=== PATIENT | female | born 1975 | race Caucasian/White ===

== ENCOUNTER 2017-07-29 18:29 | Emergency (ER) | payer OTHER ==
[2017-07-29 18:43] VITALS: BMI 23.0
--- NOTE | 2017-07-29 19:09 | PDOC ---
History of Present Illness - General Chief Complaint: Lightheaded Stated Complaint: ABD PAIN - History of Present Illness Initial Comments: Patient is a 41 year old female, with a significant past medical history of NIDDM2, who presents to the emergency department complaining of dizziness, N/V beginning this afternoon. Pt states she was fasting for ada with no food or fluids since last night. 3 hours prior to presentation in ED, pt states she became progressively lightheaded, flushed and dizzy with crampy lower abdominal pain and 10x episodes of NBNB emesis. Pt states she was in her usual state of health last night and denies any recent diet changes, sick contacts, recent travel. Of note, pt states her finger sticks were in the 300s this afternoon, with her normal range 100-150s. Pt has no hx of cardiac, GI or neurologic conditions and is compliant with her Metformin. Patient denies chest pain, shortness of breath, headache.. Denies fever, chills , diarrhea, melena, hematochezia and constipation. Denies dysuria, frequency, urgency and hematuria. Allergies: None Past surgical history: None Social History: Denies all toxic habits PMD: Not on staff 07/29/17 19:09 Past History - Past Medical History Allergies/Adverse Reactions: Allergies Allergy/AdvReac Type Severity Reaction Status Date / Time No Known Allergies Allergy Unverified 05/17/12 17:52 COPD: No Diabetes: Yes - Suicide/Smoking/Psychosocial Hx Smoking History: Never smoked Have you smoked in the past 12 months: No Information on smoking cessation initiated: No Hx Alcohol Use: No Drug/Substance Use Hx: No Review of Systems - Review of Systems Comments:: GENERAL/CONSTITUTIONAL: + flushing. No fever or chills. No weakness. HEAD, EYES, EARS, NOSE AND THROAT: No change in vision. No ear pain or discharge. No sore throat. CARDIOVASCULAR: No chest pain or shortness of breath RESPIRATORY: No cough, wheezing, or hemoptysis. GASTROINTESTINAL:+ N/V, lower abdominal pain; no diarrhea or constipation. GENITOURINARY: No dysuria, frequency, or change in urination. MUSCULOSKELETAL: No joint or muscle swelling or pain. No neck or back pain. SKIN: No rash NEUROLOGIC: + dizziness, lightheadedness; No headache, vertigo, loss of consciousness, or change in strength/sensation. ENDOCRINE: No increased thirst. No abnormal weight change HEMATOLOGIC/LYMPHATIC: No anemia, easy bleeding, or history of blood clots. ALLERGIC/IMMUNOLOGIC: No hives or skin allergy. 07/29/17 19:09 *Physical Exam - Vital Signs Last Vital Signs Temp Pulse Resp BP Pulse Ox 97.3 F L 78 20 156/75 100 07/29/17 18:40 07/29/17 18:40 07/29/17 18:40 07/29/17 18:40 07/29/17 18:40 - Physical Exam Comments: GENERAL: Middle aged woman, Awake, alert, and fully oriented, in no acute distress HEAD: No signs of trauma, normocephalic, atraumatic EYES: PERRLA, EOMI, sclera anicteric, conjunctiva clear ENT: Auricles normal inspection, hearing grossly normal, nares patent, oropharynx clear without exudates. Dry MM NECK: Normal ROM, supple, no lymphadenopathy, JVD, or masses LUNGS: No distress, speaks full sentences, clear to auscultation bilaterally HEART: Regular rate and rhythm, normal S1 and S2, no murmurs, rubs or gallops, peripheral pulses normal and equal bilaterally. ABDOMEN: Soft, nontender, normoactive bowel sounds. No guarding, no rebound. No masses. No CVA tenderness. EXTREMITIES : Normal inspection, Normal range of motion, no edema. No clubbing or cyanosis. NEUROLOGICAL: Cranial nerves II through XII grossly intact. Normal speech, normal gait, no focal sensorimotor deficits SKIN: Warm, Dry, normal turgor, no rashes or lesions noted 07/29/17 19:09 ED Treatment Course - LABORATORY CBC & Chemistry Diagram: 07/29/17 19:37 07/29/17 20:20 Medical Decision Making - Medical Decision Making Patient is a 41 year old female, with a significant past medical history of NIDDM2, who presents to the emergency department complaining of dizziness, N/V beginning this afternoon. DDX includes dehydration, HONK, DKA, viral gastritis, PUD, GERD, UTI, pyelonephritis, gastroenteritis. Plan: -CMP, CBC - UA - BGM - Bolus 1L 07/29/17 19:32 Pt symptoms improved with fluids, zofran. Labs only remarkable for WBC 15, likely reactive. Pt discharged home with counseling on fasting and f/u with PMD. 07/29/17 22:16 *DC/Admit/Observation/Transfer Diagnosis at time of Disposition: Lightheadedness DM type 2 (diabetes mellitus, type 2) Qualifiers: Diabetes mellitus intermediate accountant insulin use: without senior living use Diabetes mellitus complication status: without complication Qualified Code(s): E11.9 - Type 2 diabetes mellitus without complications - Discharge Dispostion Disposition: HOME Condition at time of disposition: Stable - Referrals Referrals: Lilly Nath MD [Primary Care Provider] - - Patient Instructions Printed Discharge Instructions: Type 2 Diabetes, DI for Dizziness-Nonvertigo Additional Instructions: Please be careful while fasting as symptoms can return. - Post Discharge Activity
[2017-07-29] MEDS ORDERED: SODIUM CHLORIDE 1,000 ML IV STA (19:22)
[2017-07-29] MEDS ORDERED: ONDANSETRON 4 MG/2 ML VIAL IVPUSH ONE (19:39)
[2017-07-29] MEDS ORDERED: ONDANSETRON 4 MG/2 ML VIAL ONE (19:42)
--- NOTE | 2017-07-29 19:42 | PDOC ---
Attending Attestation - Resident Resident Name: Ang Miller - ED Attending Attestation I have performed the following: I have examined & evaluated the patient, The case was reviewed & discussed with the resident, I agree w/resident's findings & plan, Exceptions are as noted - HPI HPI: 07/29/17 19:40 felt dizzy after fasting for the holiday. H/o DM. on Metformin. - Physicial Exam PE: 07/29/17 19:41 *Physical Exam General Appearance: Yes: Appropriately Dressed. No: Apparent Distress, Intoxicated HEENT: positive: EOMI, MIREYA, Normal ENT Inspection, Normal Voice, TMs Normal, Pharynx Normal. negative: Pale Conjunctivae, Photophobia, Scleral Icterus (R), Scleral Icterus (L) Neck: positive: Trachea midline, Normal Thyroid, Supple. negative: Tender, Rigid, Carotid bruit, Stridor, Lymphadenopathy (R), Lymphadenopathy (L), Thyromegaly Respiratory/Chest: positive: Lungs Clear, Normal Breath Sounds. negative: Chest Tender, Respiratory Distress, Accessory Muscle Use, Labored Respiration, RES, Crackles, Rales, Rhonchi, Stridor, Wheezing, Dullness Cardiovascular: positive: Regular Rhythm, Regular Rate, S1, S2. negative: Edema , JVD, Murmur, Bradycardia, Tachycardia Vascular Pulses: Dorsalis-Pedis (R): 2+, Doralis-Pedis (L): 2+ Gastrointestinal/Abdominal: positive: Normal Bowel Sounds, Flat, Soft. negative : Tender, Organomegaly, Pulsatile Mass, Increased Bowel Sounds, Decreased BS, Distended, Guarding, Rebound, Hernia, Hepatomegaly, Spleenomegaly Lymphatic: negative: Adenopathy, Tenderness Musculoskeletal: positive: Normal Inspection. negative: CVA Tenderness, Decreased Range of Motion Extremity: positive: Normal Capillary Refill, Normal Inspection, Normal Range of Motion, Pelvis Stable. negative: Tender, Pedal Edema, Swelling, Erythema Integumentary: positive: Normal Color, Dry, Warm. negative: Cyanotic, Erythema , Jaundice, Rash Neurologic: positive: solutions consultant II-XII NML intact, Fully Oriented, Alert, Normal Mood/ Affect, Motor Strength 5/5. negative: EOM Palsy, Facial Droop, Sensory Deficit - Medical Decision Making 07/29/17 22:05 Pt feels better. Pt will be discharged. Pt advised to be careful while she is fasting as symptoms can become worse. Discharge Disposition - Diagnosis Lightheadedness, DM type 2 (diabetes mellitus, type 2) - Discharge Dispostion Disposition: HOME Condition at time of disposition: Stable Decision to Admit order: No - Referrals Referrals: Lilly Nath MD [Primary Care Provider] - - Patient Instructions Printed Discharge Instructions: DI for Dizziness-Nonvertigo, Type 2 Diabetes Additional Instructions: Please be careful while fasting as symptoms can return. - Post Discharge Activity
[2017-07-29 20:28] LABS: BASO % 0.6 % (0-2.0); EOS % 0.2 % (0-4.5); HEMATOCRIT 39.5 % (32.4-45.2); LYMPH % 10.1 % (8-40); MCH 27.8 pg (25.7-33.7); MEAN CELL VOLUME 84.2 fl (80-96); MEAN PLT VOLUME 10.2 fl (7.5-11.1); NEUT % 86.1 % (42.8-82.8); PLATELET COUNT 300 K/MM3 (134-434); RBC 4.69 M/mm3 (3.60-5.2); WHITE BLOOD COUNT 15.1 K/mm3 (4.0-10.0)
[2017-07-29 21:23] LABS: ALBUMIN 4.4 g/dl (3.4-5.0); ANION GAP 8 (8-16); BLOOD UREA NITROGEN 11 mg/dL (7-18); CALCIUM 9.2 mg/dL (8.5-10.1); CHLORIDE 104 mmol/L (98-107); CO2 26 mmol/L (21-32); GLUCOSE,RANDOM 167 mg/dL (74-106); POTASSIUM 3.9 mmol/L (3.5-5.1); SGOT/AST 10 U/L (15-37); SGPT/ALT 20 U/L (12-78); SODIUM 138 mmol/L (136-145)
[2017-07-29 21:25] LABS: ALK PHOS 74 U/L (45-117); BILIRUBIN,TOTAL 0.7 mg/dL (0.2-1.0); CREATININE 0.6 mg/dL (0.55-1.02); TOT PROT 8.3 g/dl (6.4-8.2)
[2017-07-29 21:44] LABS: URINE APPEARANCE CLEAR; URINE BILIRUBIN NEGATIVE (<2.0 mg/dL); URINE COLOR YELLOW; URINE GLUCOSE (UA) NEGATIVE (NEGATIVE); URINE KETONE 1+ (NEGATIVE); URINE LEUK ESTERASE NEGATIVE (NEGATIVE); URINE NITRITE NEGATIVE (NEGATIVE); URINE PROTEIN NEGATIVE (NEGATIVE); URINE UROBILINOGEN NEGATIVE mg/dL (0.2-1.0)
[2017-07-29 21:54] VITALS: BP 132/84; PULSE 99; TEMP 98.2
--- NOTE | 2017-07-31 08:53 | EKG ---
Test Reason : Blood Pressure : / mmHG Vent. Rate : 092 BPM Atrial Rate : 092 BPM P-R Int : 180 ms QRS Dur : 090 ms QT Int : 376 ms P-R-T Axes : 037 -19 020 degrees QTc Int : 464 ms NORMAL SINUS RHYTHM POSSIBLE LEFT ATRIAL ENLARGEMENT NONSPECIFIC T WAVE ABNORMALITY PROLONGED QT ABNORMAL ECG NO PREVIOUS ECGS AVAILABLE Confirmed by BLANCA PULLIAM MD ([id number]) on 07/31/2017 8:52:59 AM Referred By: Confirmed By:BLANCA PULLIAM MD
== END 2017-07-29 22:26 | disposition home or self-care (01) ==
LOC: JER 18:29
PROC: 3E033GC Introduction of Other Therapeutic Substance into Peripheral Vein, Percutaneous Approach (ICD-10-PCS; principal; 2017-07-29)
PROC: 3E0337Z Introduction of Electrolytic and Water Balance Substance into Peripheral Vein, Percutaneous Approach (ICD-10-PCS; 2017-07-29)
DX: R42 Dizziness and giddiness (principal)
CPT/HCPCS: 36415; 80053; 81003; 82962; 85025; 93005; 93010; 99282-25; J7030

== ENCOUNTER 2018-09-11 19:24 | Emergency (ER) | payer SELFPAY ==
[2018-09-11 19:39] VITALS: BP 135/87; PULSE 93; TEMP 97.9; BMI 22.1
--- NOTE | 2018-09-13 12:08 | EKG ---
Test Reason : Blood Pressure : / mmHG Vent. Rate : 086 BPM Atrial Rate : 086 BPM P-R Int : 156 ms QRS Dur : 084 ms QT Int : 376 ms P-R-T Axes : 038 -27 017 degrees QTc Int : 449 ms NORMAL SINUS RHYTHM POSSIBLE LEFT ATRIAL ENLARGEMENT LOW VOLTAGE QRS BORDERLINE ECG WHEN COMPARED WITH ECG OF 29-JUL-2017 20:55, NO SIGNIFICANT CHANGE WAS FOUND Confirmed by Antony Chaney ([id number]) on 09/13/2018 12:08:11 PM Referred By: Confirmed By:Antony Chaney
== END 2018-09-11 21:35 | disposition left against medical advice (07) ==
LOC: JERFT 19:24
DX: Z53.21 Procedure and treatment not carried out due to patient leaving prior to being seen by health care provider (principal)
CPT/HCPCS: 93005; 93010; 99281-25

== ENCOUNTER 2022-06-22 04:04 | Emergency (ER) | payer OTHER ==
[2022-06-22 04:10] VITALS: TEMP 98.4; BMI 22.1
[2022-06-22] MEDS ORDERED: LACTATED RINGERS SOLUTION 1000 ML INFUS.BAG IV ONE (04:40)
[2022-06-22 05:38] LABS: BASO % 0.9 % (0-2.0); EOS % 0.9 % (0-4.5); HEMATOCRIT 37.7 % (32.4-45.2); MCH 29.1 pg (25.7-33.7); MCHC 34.4 g/dl (32.0-36.0); MEAN CELL VOLUME 84.5 fl (80-96); MEAN PLT VOLUME 10.4 fl (7.5-11.1); MONO % 7.1 % (3.8-10.2); NEUT % 55.1 % (42.8-82.8); PLATELET COUNT 351 10^3/uL (134-434); RBC 4.46 M/mm3 (3.60-5.2); RDW 13.6 % (11.6-15.6); WHITE BLOOD COUNT 9.5 K/mm3 (4.0-10.0)
[2022-06-22 05:45] LABS: INR 0.94 (0.83-1.09); PROTHROMBIN TIME (PATIENT) 10.9 SEC (9.7-13.0)
[2022-06-22 05:48] LABS: ACTIVATED PTT 32.9 SECONDS (25.2-36.5)
[2022-06-22 06:04] LABS: BLOOD UREA NITROGEN 14.1 mg/dL (7-18); CALCIUM 9.6 mg/dL (8.5-10.1)
[2022-06-22 06:05] LABS: MAGNESIUM 1.6 mg/dL (1.8-2.4)
[2022-06-22 06:07] LABS: CREATININE 0.6 mg/dL (0.55-1.3); PHOSPHOROUS 3.8 mg/dL (2.5-4.9)
[2022-06-22 06:09] LABS: BILIRUBIN,TOTAL 0.4 mg/dL (0.2-1); TOT PROT 8.4 g/dl (6.4-8.2)
[2022-06-22] MEDS ORDERED: MAGNESIUM SULF 50% (8.12 MEQ/2 ML-1 GM VIAL) IVPB ONE ×2 (06:32→06:34)
[2022-06-22] MEDS ORDERED: MAGNESIUM SULFATE IN WATER 2 GM/50 ML IVPB IVPB ONE (06:42)
[2022-06-22 07:16] VITALS: BP 124/84; PULSE 96; RESP 18
== END 2022-06-22 09:18 | disposition left against medical advice (07) ==
LOC: JER 04:04
PROC: 3E033GC Introduction of Other Therapeutic Substance into Peripheral Vein, Percutaneous Approach (ICD-10-PCS; principal; 2022-06-22)
DX: R07.9 Chest pain, unspecified (principal); R10.11 Right upper quadrant pain
CPT/HCPCS: 36415; 71045-TC-FY; 80053; 82962; 83690; 83735; 84100; 84484; 85025; 85610; 85730; 93005; 93010; 99285-25